=== PATIENT | male | born 1980 | race Caucasian/White ===

== ENCOUNTER 2016-05-07 15:42 | Outpatient (CLI) | payer OTHER ==
--- NOTE | 2016-05-08 10:28 | XRAY Report ---
THREE-VIEW CERVICAL SPINE: 05/07/2016 CLINICAL INDICATION: Neck pain. FINDINGS: AP, lateral, odontoid views of the cervical spine demonstrate mild degenerative disk disea se, with disk space narrowing at C3-4. There is no evidence of acute fracture or subluxation. The p revertebral soft tissues are unremarkable. IMPRESSION: MILD DEGENERATIVE DISK DISEASE. JOB #: [id number] EXT JOB #:[id number]
== END 2016-05-07 15:43 | disposition home or self-care (01) ==
LOC: DI.S 15:42
PROVIDERS: ATTEND Physician Assistant
DX: M50.31 Other cervical disc degeneration, high cervical region (principal)
CPT/HCPCS: 72040

== ENCOUNTER 2016-06-25 07:04 | Day surgery (SDC) | payer OTHER ==
[2016-06-25] MEDS ORDERED: ceFAZolin 2 GM/50 ML 50 ML IV ONE (07:05)
[2016-06-25] MEDS ORDERED: LACTATED RINGERS 1,000 ML IV ONE ×2 (07:49→10:40)
[2016-06-25] MEDS ORDERED: BUPIVACAINE 0.5% PF 30 ML VIAL INFIL ONE ×2 (08:56)
[2016-06-25] MEDS ORDERED: ONDANSETRON 4 MG/2 ML VIAL IVP ONE (09:00)
[2016-06-25] MEDS ORDERED: MIDAZOLAM 2 MG/2 ML VIAL IVP ONE (09:00)
[2016-06-25] MEDS ORDERED: ROCURONIUM 50 MG/5 ML VIAL IVP ONE (09:00)
[2016-06-25] MEDS ORDERED: NEOSTIGMINE 1 MG/1 ML 10 ML MDV IVP ONE (09:00)
[2016-06-25] MEDS ORDERED: SUCCINYLCHOLINE 200 MG/10 ML VIAL IVP ONE (09:00)
[2016-06-25] MEDS ORDERED: DEXAMETHASONE 4 MG/ML VIAL IVP ONE (09:00)
[2016-06-25] MEDS ORDERED: PROPOFOL 200 MG/20 ML VIAL IVP ONE (09:00)
[2016-06-25] MEDS ORDERED: GLYCOPYRROLATE 1 MG/5 ML VIAL IVP ONE (09:00)
[2016-06-25] MEDS ORDERED: LIDOCAINE-MPF 2% 5 ML VIAL IM ONE (09:00)
[2016-06-25] MEDS ORDERED: fentaNYL 100 MCG/2 ML VIAL IVP ONE (09:00)
[2016-06-25] MEDS ORDERED: oxyCOD/ACETAMIN 5 MG/325 MG TABLET PO ONE (10:24)
== END 2016-06-25 07:05 | disposition home or self-care (01) ==
PROC: 0YU54JZ Supplement Right Inguinal Region with Synthetic Substitute, Percutaneous Endoscopic Approach (ICD-10-PCS; principal; 2016-06-25 08:15)
DX: K40.90 Unilateral inguinal hernia, without obstruction or gangrene, not specified as recurrent (principal)
CPT/HCPCS: 49650; A9270; C1781; J0690; J7120

== ENCOUNTER 2018-03-09 19:25 | Emergency (ER) | payer OTHER ==
[2018-03-09] MEDS ORDERED: LIDOCAINE 1% 2 ML VIAL SUBQ ONE (20:01)
[2018-03-09] MEDS ORDERED: cefTRIAXone 1 GM VIAL IM STA (20:01)
--- NOTE | 2018-03-09 20:03 | ED Physician Documentation ---
PD HPI UPPER EXT INJURY - Stated complaint Stated Complaint: LR ARM RASH - Chief complaint Chief Complaint: Ext Problem - History obtained from History obtained from: Patient - History of Present Illness Location: Left (Last day or so he has had some pain of the left thumb. He has a remote history of surgery with pins there. Today he has had redness and pain tracking up the arm. No fevers or chills.) Review of Systems Constitutional: denies: Fever, Chills Cardiac: reports: Reviewed and negative Respiratory: reports: Reviewed and negative GI: denies: Abdominal Pain, Nausea, Vomiting PD PAST MEDICAL HISTORY - Past Medical History Past Medical History: No Respiratory: None Endocrine/Autoimmune: None GI: None : None HEENT: None Psych: None Musculoskeletal: None Derm: None - Past Surgical History Past Surgical History: Yes Ortho: Other - Present Medications Home Medications: Ambulatory Orders Medication Instructions Recorded Confirmed Cephalexin [Keflex] 500 mg PO Q6H #28 capsule 03/09/18 - Allergies Allergies/Adverse Reactions: Allergies Allergy/AdvReac Type Severity Reaction Status Date / Time No Known Drug Allergies Allergy Verified 03/09/18 19:34 - Social History Does the pt smoke?: No Smoking Status: Never smoker Does the pt drink ETOH?: No Does the pt have substance abuse?: No - Immunizations Immunizations are current?: Yes - POLST Patient has POLST: No PD ED PE NORMAL - Vitals Vital signs reviewed: Yes - General General: Alert and oriented X 3, No acute distress - Extremities Extremities: Other (There is mild tenderness of the distal left thumb but no paronychia or felon. He has good range of motion which is painless. He has a mild case of lymphangitis tracking up the forearm to the antecubital fossa. No track cardenas or other evidence of trauma except for a little scrape on the dorsal side of the second left finger of that does not appear infected.) - Neuro Neuro: Alert and oriented X 3, Normal speech Results - Vitals Vitals: Vital Signs - 24 hr 03/09/18 19:30 Temperature 36.8 C Heart Rate 65 Respiratory 19 Rate Blood Pressure 127/79 O2 Saturation 97 Oxygen O2 Source Room air PD MEDICAL DECISION MAKING - ED course ED course: This is a 37-year-old gentleman who is not in extremis who presents with mild case of lymphangitis that appears to be from a mild infection of the left thumb and nothing to drain at this juncture. He is administered Rocephin IM here. Departure - Departure Disposition: 01 Home, Self Care Clinical Impression: Lymphangitis Condition: Good Record reviewed to determine appropriate education?: Yes Instructions: ED Lymphangitis Prescriptions: Cephalexin [Keflex] 500 mg PO Q6H #28 capsule Comments: Return immediately if he started to feel generally ill i.e. fevers or chills or diffuse body aches. Also return if pain becomes intolerable or severe or if not improving in 24-48 hours.
[2018-03-09 20:26] VITALS: BP 126/59
== END 2018-03-09 20:50 | disposition home or self-care (01) ==
LOC: ED 19:25
DX: L03.124 Acute lymphangitis of left upper limb (principal)
CPT/HCPCS: 96372; 99283

== ENCOUNTER 2018-12-24 18:30 | Outpatient (CLI) | payer OTHER ==
[2018-12-24 21:13] LABS: BASOPHILS % (AUTO) 0.7 %; EOSINOPHILS # (AUTO) 0.3 10^3/uL (0.0-0.7); EOSINOPHILS % (AUTO) 5.1 %; HGB - HEMOGLOBIN 14.2 g/dL (14.0-18.0); LYMPHOCYTES # (AUTO) 1.7 10^3/uL (1.5-3.5); LYMPHOCYTES % (AUTO) 29.8 %; MEAN CORPUSCULAR HEMOGLOBIN 31.3 pg (27.0-31.0); MEAN CORPUSCULAR HGB CONC 34.7 g/dL (32.0-36.0); MEAN CORPUSCULAR VOLUME 90.3 fL (80.0-94.0); MEAN PLATELET VOLUME 9.4 fL (7.4-11.4); MONOCYTES # (AUTO) 0.5 10^3/uL (0.0-1.0); MONOCYTES % (AUTO) 9.6 %; NEUTROPHILS # (AUTO) 3.1 10^3/uL (1.5-6.6); NEUTROPHILS % (AUTO) 54.6 %; PLT - PLATELET COUNT 217 10^3/uL (130-450); RED BLOOD COUNT 4.53 10^6/uL (4.70-6.10); RED CELL DISTRIBUTION WIDTH 11.9 % (12.0-15.0); WHITE BLOOD COUNT 5.6 x10^3/uL (4.8-10.8)
[2018-12-24 21:23] LABS: BUN - BLOOD UREA NITROGEN 23 mg/dL (6-20); CALCIUM 9.6 mg/dL (8.5-10.3); CARBON DIOXIDE - CO2 30 mmol/L (21-32); CHLORIDE 101 mmol/L (101-111); CREATININE 0.9 mg/dL (0.6-1.2); GFR - MDRD 95 (>89); GLUCOSE 97 mg/dL (70-100); SODIUM 139 mmol/L (135-145)
[2018-12-24 21:34] LABS: CRP - C-REACTIVE PROTEIN < 1.0 mg/dL (0-1.0)
== END 2018-12-24 23:59 | disposition home or self-care (01) ==
LOC: LAB.R 18:30
PROVIDERS: ATTEND Internal Medicine
DX: M86.642 Other chronic osteomyelitis, left hand (principal)
CPT/HCPCS: 80048; 85025; 85651; 86140

== ENCOUNTER 2018-12-31 19:00 | Outpatient (CLI) | payer OTHER ==
[2018-12-31 21:25] LABS: BASOPHILS % (AUTO) 0.5 %; EOSINOPHILS # (AUTO) 0.2 10^3/uL (0.0-0.7); EOSINOPHILS % (AUTO) 3.8 %; HGB - HEMOGLOBIN 14.3 g/dL (14.0-18.0); LYMPHOCYTES # (AUTO) 1.8 10^3/uL (1.5-3.5); LYMPHOCYTES % (AUTO) 31.7 %; MEAN CORPUSCULAR HEMOGLOBIN 31.4 pg (27.0-31.0); MEAN CORPUSCULAR HGB CONC 34.7 g/dL (32.0-36.0); MEAN CORPUSCULAR VOLUME 90.5 fL (80.0-94.0); MEAN PLATELET VOLUME 9.6 fL (7.4-11.4); MONOCYTES # (AUTO) 0.6 10^3/uL (0.0-1.0); MONOCYTES % (AUTO) 10.5 %; NEUTROPHILS # (AUTO) 2.9 10^3/uL (1.5-6.6); NEUTROPHILS % (AUTO) 53.3 %; PLT - PLATELET COUNT 210 10^3/uL (130-450); RED BLOOD COUNT 4.55 10^6/uL (4.70-6.10); RED CELL DISTRIBUTION WIDTH 12.2 % (12.0-15.0); WHITE BLOOD COUNT 5.5 x10^3/uL (4.8-10.8)
[2018-12-31 21:51] LABS: BUN - BLOOD UREA NITROGEN 25 mg/dL (6-20); CALCIUM 9.6 mg/dL (8.5-10.3); CARBON DIOXIDE - CO2 29 mmol/L (21-32); CHLORIDE 102 mmol/L (101-111); CREATININE 0.9 mg/dL (0.6-1.2); GFR - MDRD 95 (>89); GLUCOSE 66 mg/dL (70-100); SODIUM 139 mmol/L (135-145)
[2018-12-31 21:54] LABS: CRP - C-REACTIVE PROTEIN < 1.0 mg/dL (0-1.0)
== END 2018-12-31 23:59 | disposition home or self-care (01) ==
LOC: LAB.R 19:00
PROVIDERS: ATTEND Internal Medicine
DX: M86.642 Other chronic osteomyelitis, left hand (principal); L03.012 Cellulitis of left finger; S60.352A Superficial foreign body of left thumb, initial encounter; B95.61 Methicillin susceptible Staphylococcus aureus infection as the cause of diseases classified elsewhere
CPT/HCPCS: 80048; 85025; 85651; 86140

== ENCOUNTER 2019-01-07 19:15 | Outpatient (CLI) | payer OTHER ==
[2019-01-07 22:36] LABS: BASOPHILS % (AUTO) 0.6 %; EOSINOPHILS # (AUTO) 0.2 10^3/uL (0.0-0.7); EOSINOPHILS % (AUTO) 3.7 %; HGB - HEMOGLOBIN 13.9 g/dL (14.0-18.0); LYMPHOCYTES # (AUTO) 1.6 10^3/uL (1.5-3.5); LYMPHOCYTES % (AUTO) 30.3 %; MEAN CORPUSCULAR HEMOGLOBIN 31.2 pg (27.0-31.0); MEAN CORPUSCULAR HGB CONC 34.5 g/dL (32.0-36.0); MEAN CORPUSCULAR VOLUME 90.6 fL (80.0-94.0); MEAN PLATELET VOLUME 9.9 fL (7.4-11.4); MONOCYTES # (AUTO) 0.5 10^3/uL (0.0-1.0); NEUTROPHILS # (AUTO) 2.9 10^3/uL (1.5-6.6); NEUTROPHILS % (AUTO) 55.2 %; PLT - PLATELET COUNT 201 10^3/uL (130-450); RED BLOOD COUNT 4.45 10^6/uL (4.70-6.10); RED CELL DISTRIBUTION WIDTH 12.1 % (12.0-15.0); WHITE BLOOD COUNT 5.2 x10^3/uL (4.8-10.8)
[2019-01-07 23:05] LABS: BUN - BLOOD UREA NITROGEN 23 mg/dL (6-20); CALCIUM 9.5 mg/dL (8.5-10.3); CARBON DIOXIDE - CO2 29 mmol/L (21-32); CHLORIDE 102 mmol/L (101-111); CREATININE 0.9 mg/dL (0.6-1.2); GFR - MDRD 95 (>89); GLUCOSE 87 mg/dL (70-100); SODIUM 142 mmol/L (135-145)
[2019-01-07 23:41] LABS: CRP - C-REACTIVE PROTEIN < 1.0 mg/dL (0-1.0)
== END 2019-01-07 23:59 | disposition home or self-care (01) ==
LOC: LAB.R 19:15
PROVIDERS: ATTEND Internal Medicine
DX: M86.642 Other chronic osteomyelitis, left hand (principal)
CPT/HCPCS: 80048; 85025; 85610; 85651; 86140

== ENCOUNTER 2019-01-14 19:30 | Outpatient (CLI) | payer OTHER ==
[2019-01-14 22:52] LABS: BASOPHILS % (AUTO) 0.3 %; EOSINOPHILS # (AUTO) 0.2 10^3/uL (0.0-0.7); EOSINOPHILS % (AUTO) 4.9 %; HGB - HEMOGLOBIN 13.7 g/dL (14.0-18.0); LYMPHOCYTES # (AUTO) 1.2 10^3/uL (1.5-3.5); LYMPHOCYTES % (AUTO) 35.5 %; MEAN CORPUSCULAR HGB CONC 34.9 g/dL (32.0-36.0); MEAN CORPUSCULAR VOLUME 88.9 fL (80.0-94.0); MEAN PLATELET VOLUME 9.5 fL (7.4-11.4); MONOCYTES # (AUTO) 0.3 10^3/uL (0.0-1.0); MONOCYTES % (AUTO) 10.2 %; NEUTROPHILS # (AUTO) 1.6 10^3/uL (1.5-6.6); NEUTROPHILS % (AUTO) 48.8 %; PLT - PLATELET COUNT 154 10^3/uL (130-450); RED BLOOD COUNT 4.42 10^6/uL (4.70-6.10); RED CELL DISTRIBUTION WIDTH 11.7 % (12.0-15.0); WHITE BLOOD COUNT 3.2 x10^3/uL (4.8-10.8)
[2019-01-14 23:02] LABS: BUN - BLOOD UREA NITROGEN 24 mg/dL (6-20); CALCIUM 9.4 mg/dL (8.5-10.3); CARBON DIOXIDE - CO2 29 mmol/L (21-32); CHLORIDE 100 mmol/L (101-111); CREATININE 0.9 mg/dL (0.6-1.2); GFR - MDRD 95 (>89); GLUCOSE 84 mg/dL (70-100); SODIUM 135 mmol/L (135-145)
[2019-01-14 23:03] LABS: CRP - C-REACTIVE PROTEIN < 1.0 mg/dL (0-1.0)
== END 2019-01-14 23:59 | disposition home or self-care (01) ==
LOC: LAB.R 19:30
PROVIDERS: ATTEND Internal Medicine
DX: M86.642 Other chronic osteomyelitis, left hand (principal)
CPT/HCPCS: 80048; 85025; 85651; 86140

== ENCOUNTER 2019-01-21 19:50 | Outpatient (CLI) | payer OTHER ==
[2019-01-21 21:22] LABS: EOSINOPHILS % (AUTO) 9.2 %; HGB - HEMOGLOBIN 12.4 g/dL (14.0-18.0); LYMPHOCYTES % (AUTO) 29.4 %; MEAN CORPUSCULAR HEMOGLOBIN 30.3 pg (27.0-31.0); MEAN CORPUSCULAR HGB CONC 34.8 g/dL (32.0-36.0); MEAN PLATELET VOLUME 9.3 fL (7.4-11.4); MONOCYTES % (AUTO) 18.4 %; NEUTROPHILS % (AUTO) 42.6 %; PLT - PLATELET COUNT 172 10^3/uL (130-450); RED BLOOD COUNT 4.09 10^6/uL (4.70-6.10); RED CELL DISTRIBUTION WIDTH 11.6 % (12.0-15.0); WHITE BLOOD COUNT 2.8 x10^3/uL (4.8-10.8)
[2019-01-21 21:40] LABS: CALCIUM 9.2 mg/dL (8.5-10.3); CRP - C-REACTIVE PROTEIN 1.4 mg/dL (0-1.0)
[2019-01-21 21:59] LABS: ABNORMAL LYMPHS % (MANUAL) 0 %
[2019-01-21 22:06] LABS: BAND NEUTROPHILS % (MANUAL) 5 %; EOSINOPHILS # (MANUAL) 0.2 10^3/uL (0-0.7); LYMPHOCYTES # (MANUAL) 0.8 10^3/uL (1.5-3.5); LYMPHOCYTES % (MANUAL) 24 %; MONOCYTES # (MANUAL) 0.4 10^3/uL (0.0-1.0)
[2019-01-21 22:07] LABS: DIFFERENTIAL COMMENT MANUAL DIFFERENTIAL; PLATELET ESTIMATE, MANUAL NORMAL (130-450,000) (NORMAL); PLATELET MORPHOLOGY NORMAL APPEARANCE (NORMAL); RBC MORPHOLOGY (MULTIPLE) NORMAL APPEARANCE (NORMAL)
== END 2019-01-21 23:59 | disposition home or self-care (01) ==
LOC: LAB.R 19:50
PROVIDERS: ATTEND Internal Medicine
DX: M86.642 Other chronic osteomyelitis, left hand (principal)
CPT/HCPCS: 80048; 85025; 85651; 86140

== ENCOUNTER 2019-01-28 19:45 | Outpatient (CLI) | payer OTHER ==
[2019-01-28 21:49] LABS: EOSINOPHILS # (AUTO) 0.3 10^3/uL (0.0-0.7); EOSINOPHILS % (AUTO) 7.4 %; HGB - HEMOGLOBIN 11.4 g/dL (14.0-18.0); LYMPHOCYTES # (AUTO) 1.3 10^3/uL (1.5-3.5); LYMPHOCYTES % (AUTO) 38.6 %; MEAN CORPUSCULAR HEMOGLOBIN 29.5 pg (27.0-31.0); MEAN CORPUSCULAR HGB CONC 34.3 g/dL (32.0-36.0); MEAN PLATELET VOLUME 9.2 fL (7.4-11.4); MONOCYTES # (AUTO) 0.2 10^3/uL (0.0-1.0); NEUTROPHILS # (AUTO) 1.6 10^3/uL (1.5-6.6); NEUTROPHILS % (AUTO) 48.7 %; PLT - PLATELET COUNT 216 10^3/uL (130-450); RED BLOOD COUNT 3.86 10^6/uL (4.70-6.10); RED CELL DISTRIBUTION WIDTH 11.6 % (12.0-15.0); WHITE BLOOD COUNT 3.4 x10^3/uL (4.8-10.8)
[2019-01-28 22:05] LABS: BUN - BLOOD UREA NITROGEN 23 mg/dL (6-20); CALCIUM 9.1 mg/dL (8.5-10.3); CARBON DIOXIDE - CO2 28 mmol/L (21-32); CHLORIDE 103 mmol/L (101-111); GFR - MDRD 84 (>89); GLUCOSE 74 mg/dL (70-100); SODIUM 137 mmol/L (135-145)
[2019-01-28 22:06] LABS: CRP - C-REACTIVE PROTEIN < 1.0 mg/dL (0-1.0)
== END 2019-01-28 23:59 | disposition home or self-care (01) ==
LOC: LAB.R 19:45
PROVIDERS: ATTEND Internal Medicine
DX: M86.642 Other chronic osteomyelitis, left hand (principal)
CPT/HCPCS: 80048; 85025; 85651; 86140

== ENCOUNTER 2021-01-19 19:50 | Outpatient (CLI) | payer OTHER | END 2021-01-19 23:59 | disposition EMS.NT | LOC: EMS 19:50 | DX: S43.005A Unspecified dislocation of left shoulder joint, initial encounter (principal); W01.0XXA Fall on same level from slipping, tripping and stumbling without subsequent striking against object, initial encounter; Y93.01 Activity, walking, marching and hiking; Y92.007 Garden or yard of unspecified non-institutional (private) residence as the place of occurrence of the external cause ==

== ENCOUNTER 2021-01-19 20:37 | Emergency (ER) | payer OTHER ==
--- NOTE | 2021-01-19 20:44 | ED Physician Documentation ---
PD HPI UPPER EXT INJURY - Stated complaint Stated Complaint: LEFT SHOULDER INJURY - History obtained from History obtained from: Patient - History of Present Illness Location: Left, Shoulder Type of injury: Fall Where injury occurred: Home Timing - onset: How many hours ago (1) Pain level now: 8 Improved by: Rest Worsened by: Moving, Palpating Associated symptoms: No: Weakness, Numbness Contributing factors: No: Anticoagulated, Prior ortho surgery, Work related Recently seen: Not recently seen - Additonal information Additional information: approximately 1 hour [employer], patient was walking outside his house when he slipped and fell onto his left side, c/o sudden onset left shoulder pain. He is right hand dominant. Pain is worse with any movement of left shoulder. Denies any other injury; denies head injury, denies LOC Review of Systems Skin: reports: Reviewed and negative Musculoskeletal: reports: Joint pain. denies: Neck pain, Back pain, Extremity pain, Extremity swelling, Joint swelling Neurologic: denies: Focal weakness, Numbness, Headache, Head injury PD PAST MEDICAL HISTORY - Past Medical History Respiratory: None Endocrine/Autoimmune: None GI: None : None HEENT: None Psych: None Musculoskeletal: None Derm: None - Past Surgical History Past Surgical History: Yes Ortho: Other - Present Medications Home Medications: Ambulatory Orders Medication Instructions Recorded Confirmed cephALEXin [Keflex] 500 mg PO Q6H #28 capsule 03/09/18 - Allergies Allergies/Adverse Reactions: Allergies Allergy/AdvReac Type Severity Reaction Status Date / Time No Known Drug Allergies Allergy Verified 03/09/18 19:34 - Social History Does the pt smoke?: No Smoking Status: Never smoker Does the pt drink ETOH?: No Does the pt have substance abuse?: No - Immunizations Immunizations are current?: Yes - POLST Patient has POLST: No PD ED PE NORMAL - Vitals Vital signs reviewed: Yes - General General: Alert and oriented X 3, Well developed/nourished, Other (appears to be in mild painful discomfort at rest) - HEENT HEENT: Atraumatic - Neck Neck: No bony TTP - Derm Derm: Normal color, Warm and dry - Neuro Neuro: No motor deficit, No sensory deficit (LTS intact LUE) PD ED PE EXPANDED - Extremities Extremities: Deformity (prominent acromion at left shoulder), Limited ROM (unable to achieve any ROM at left shoulder due to pain with any such attempts), Motor intact, Sensory intact (LTS intact LUE including hand, forearm, lateral aspect of upper arm (over deltoid)), Vascular intact (strong left radial pulse). No: Bruising Results - Vitals Vitals: Vital Signs - 24 hr 01/19/21 01/19/21 01/19/21 20:42 21:21 21:33 Temperature 36 C L Heart Rate 64 69 66 Respiratory 16 25 H Rate Blood Pressure 126/80 138/82 H O2 Saturation 100 100 100 01/19/21 01/19/21 01/19/21 21:35 21:45 21:47 Temperature Heart Rate 67 71 63 Respiratory 14 8 L Rate Blood Pressure 149/96 H O2 Saturation 100 100 01/19/21 01/19/21 22:00 22:50 Temperature Heart Rate 67 66 Respiratory 14 Rate Blood Pressure 143/87 H O2 Saturation 100 16 L Oxygen O2 Source Room air - Rads (name of study) left shoulder xrays Radiology: Prelim report reviewed, See rad report post-reduction xrays left shoulder Radiology: Prelim report reviewed, See rad report Procedures - Reduction Body part reduced: Left, Shoulder Fracture or dislocation: Dislocation Anesthesia: Dilaudid, Other (propofol) Shoulder reduction technique: [place] / ext rotation Reduction aftercare: NV intact, Xray confirms reduction, Alignment improved, Sling, Patient tolerated well - Procedural sedation Sedation prep: Informed consent, Time out completed, PE performed, ASA 1 - healt hy, IV O2 monitor, ET CO2 monitor, RT present Sedation Medications: propofol Mallampati classification: I Patient status during sedation: Responds to verbal, Vitals remained stable, Maintained airway, Recovered uneventfully Sedation recovery: Recovered uneventfully, Back to baseline Time in sedation (Minutes): 15 (propofol was given in 10-20mg aliquots by me; after total of 110mg, he remained awake and alert, with mild drowsiness only. at that point I attempted reduction and this was quickly achieved on first attempt) PD MEDICAL DECISION MAKING - ED course Complexity details: reviewed results, re-evaluated patient, considered differential, d/w patient ED course: left glenohumeral dislocation after fall outside of his home. Reduction achieved as noted above. Post-reduction xrays demonstrate reduction but also fracture through anterior-inferior rim of osseous glenoid. I discussed the case with Dr. Walker (development professional orthopedic surgery for [facility]), patient can be reevaluated in outpatient setting with orthopedic surgery, to be kept in sling until follow-up. I discussed this with the patient and he will pursue outpatient follow up as advised. He is in NAD at the time of discharge Departure - Departure Disposition: 01 Home, Self Care Clinical Impression: Closed traumatic dislocation of left glenohumeral joint Condition: Good Instructions: ED Sedation Procedural Discon, ED Dislocation Shoulder Redu Follow-Up: Bar Walker MD [Provider Admit Priv/Credential] - Within 1 week Discharge Date/Time: 01/19/21 22:54
[2021-01-19] MEDS: HYDROmorphone 0.5 MG/0.5 ML SYRINGE IVP STA (21:17)
[2021-01-19] MEDS: HYDROmorphone 1 MG/ML CARPUJECT IVP STA (21:30)
[2021-01-19] MEDS: PROPOFOL 200 MG/20 ML VIAL IVP STA (21:33)
--- NOTE | 2021-01-19 21:47 | XRAY Report ---
PROCEDURE: Shoulder 3 View LT INDICATIONS: left shoulder injury TECHNIQUE: Views of the left shoulderwere acquired. COMPARISON: None. FINDINGS: Bones: Anterior shoulder dislocation. No fracture identified. Left knee joint has degenerative fang es. Soft tissues: No suspicious soft tissue calcifications. IMPRESSION: Left anterior shoulder dislocation. Reviewed by: Beck Banuelos on 01/19/2021 9:46 PM [facility] Approved by: Beck Banuelos on 01/19/2021 9:46 PM [facility] Station ID: [id number]
--- NOTE | 2021-01-19 22:35 | XRAY Report ---
PROCEDURE: Shoulder 3 View LT INDICATIONS: post-reduction left shoulder TECHNIQUE: 3 views of the shoulder were acquired. COMPARISON: 01/19/2021 FINDINGS: Humeral head is now well positioned in the glenoid fossa. Minimally displaced fracture through the i nferior rim of the osseous glenoid is noted. Normal bone mineralization present. Soft tissues: No suspicious soft tissue calcifications. IMPRESSION: Reduced left shoulder. Fracture through the anterior-inferior rim of the osseous glenoid Reviewed by: Alec Sandy MD on 01/19/2021 10:34 PM PST Approved by: Alec Sandy MD on 01/19/2021 10:34 PM PST Station ID: [id number]
[2021-01-19 22:51] VITALS: BP 143/87
== END 2021-01-19 22:54 | disposition home or self-care (01) ==
LOC: ED 20:37
DX: S43.005A Unspecified dislocation of left shoulder joint, initial encounter (principal); W01.0XXA Fall on same level from slipping, tripping and stumbling without subsequent striking against object, initial encounter; Y93.01 Activity, walking, marching and hiking; Y92.009 Unspecified place in unspecified non-institutional (private) residence as the place of occurrence of the external cause
CPT/HCPCS: 23650; 73030; 96374; 99152; 99284; 99285; J1170; 94770

== ENCOUNTER 2022-08-09 07:00 | Outpatient (CLI) | payer SELFPAY ==
--- NOTE | 2022-08-09 14:54 | XRAY Report ---
PROCEDURE: Ankle 3 View RT INDICATIONS: RIGHT ANKLE PAIN TECHNIQUE: 3 views of the ankle were acquired. COMPARISON: None. FINDINGS: Bones: No fractures or dislocations. Ankle mortise is normally aligned. No suspicious bony lesions . Soft tissues: Small tibiotalar joint effusion. Achilles tendon appears normal. Soft tissue swellin g about the ankle. IMPRESSION: Small tibial talar joint effusion, and generalized edema about the ankle. No acute bony abnormality. If there remains a high clinical concern for fracture, including inability to bear weight, consider c ross-sectional imaging to exclude an occult fracture. Reviewed by: Javi Gallagher on 08/09/2022 2:53 PM PDT Approved by: Javi Gallagher on 08/09/2022 2:53 PM PDT Station ID: [id number]
== END 2022-08-09 23:59 | disposition home or self-care (01) ==
LOC: DI.S 07:00
PROVIDERS: ATTEND Physician Assistant
DX: M25.571 Pain in right ankle and joints of right foot (principal); M25.471 Effusion, right ankle; R60.0 Localized edema

== ENCOUNTER 2022-08-23 08:00 | Outpatient (CLI) | payer SELFPAY ==
--- NOTE | 2022-08-23 19:01 | XRAY Report ---
PROCEDURE: Ankle 3 View RT INDICATIONS: RIGHT ANKLE PAIN TECHNIQUE: 3 views of the ankle were acquired. COMPARISON: None. FINDINGS: Bones: No fractures or dislocations. Ankle mortise is normally aligned. No suspicious bony lesions . Soft tissues: No tibiotalar joint effusion. Achilles tendon appears normal. Moderate lateral malle olus soft tissue edema. IMPRESSION: Lateral malleolus soft tissue swelling without underlying fracture or dislocation. If there is persistent clinical concern for a radiographically occult fracture, recommend immobilizat ion and repeat imaging in 10 to 14 days. Reviewed by: Amrik Fortune MD on 08/23/2022 7:00 PM PDT Approved by: Amrik Fortune MD on 08/23/2022 7:00 PM PDT Station ID: [id number]
== END 2022-08-23 23:59 | disposition home or self-care (01) ==
LOC: DI.WOS 08:00
PROVIDERS: ATTEND Physician Assistant Surgical
DX: S93.431A Sprain of tibiofibular ligament of right ankle, initial encounter (principal)

== ENCOUNTER 2023-05-07 13:39 | Outpatient (CLI) | payer SELFPAY ==
[2023-05-07 20:15] LABS: BASOPHILS % (AUTO) 0.8 %; EOSINOPHILS # (AUTO) 0.2 10^3/uL (0.0-0.7); EOSINOPHILS % (AUTO) 3.7 %; HCT - HEMATOCRIT 42.2 % (42.0-52.0); HGB - HEMOGLOBIN 14.3 g/dL (14.0-18.0); LYMPHOCYTES # (AUTO) 1.6 10^3/uL (1.5-3.5); LYMPHOCYTES % (AUTO) 30.1 %; MEAN CORPUSCULAR HEMOGLOBIN 31.2 pg (27.0-31.0); MEAN CORPUSCULAR HGB CONC 33.9 g/dL (32.0-36.0); MEAN CORPUSCULAR VOLUME 92.1 fL (80.0-94.0); MEAN PLATELET VOLUME 9.2 fL (7.4-11.4); MONOCYTES # (AUTO) 0.6 10^3/uL (0.0-1.0); MONOCYTES % (AUTO) 10.8 %; NEUTROPHILS # (AUTO) 2.8 10^3/uL (1.5-6.6); NEUTROPHILS % (AUTO) 54.4 %; PLT - PLATELET COUNT 287 10^3/uL (130-450); RED BLOOD COUNT 4.58 10^6/uL (4.70-6.10); WHITE BLOOD COUNT 5.2 x10^3/uL (4.8-10.8)
[2023-05-07 20:27] LABS: ALBUMIN 4.3 g/dL (3.2-5.5); ALBUMIN/GLOBULIN RATIO 1.6 (1.0-2.2); BILIRUBIN,TOTAL 1.1 mg/dL (0.2-1.0); CALCIUM 9.8 mg/dL (8.5-10.3); CREATININE 1.4 mg/dL (0.6-1.3)
[2023-05-07 21:08] LABS: THYROID STIMULATING HORMONE 3.05 uIU/mL (0.34-5.60)
== END 2023-05-07 13:40 | disposition home or self-care (01) ==
LOC: LAB.S 13:39
PROVIDERS: ATTEND Physician Assistant Medical
DX: I10 Essential (primary) hypertension (principal); Z13.29 Encounter for screening for other suspected endocrine disorder
CPT/HCPCS: 36415; 80053; 84443; 85025

== ENCOUNTER 2023-05-10 15:20 | Outpatient (CLI) | payer OTHER ==
--- NOTE | 2023-05-11 08:42 | CT Report ---
PROCEDURE: Abdomen/Pelvis WO INDICATIONS: ABN KIDNEY FUNCTION, HYPERTENSION, FLANK PAIN TECHNIQUE: A CT scan of the abdomen and pelvis was performed without the use of intravenous contrast. Images we re recorded and evaluated at appropriate window settings. Reformats: coronal and sagittal. For radiat ion dose reduction, the following was used: automated exposure control, adjustment of mA and/or kV ac cording to patient size. COMPARISON: None. FINDINGS: Image quality: Diagnostic. Lower chest: Unremarkable. Liver: No contour-deforming mass. Gallbladder and biliary tree: No radiopaque stones or wall thickening. No biliary dilation. Spleen: No splenomegaly. Pancreas: No pancreatic ductal dilation. Adrenals: No adrenal nodule. Kidneys and ureters: No hydronephrosis. No renal cystic lesion which requires follow up. No solid mas s. Stomach, bowel and peritoneum: No bowel distension. No pathologic free fluid. Moderately large fecal load. Lymph nodes: No central or retroperitoneal adenopathy. Vessels: No infrarenal aortic aneurysm. PELVIS Reproductive organs: Unremarkable. Bladder: No wall thickness, accounting for underdistention. Pelvic lymph nodes: No pelvic adenopathy by size criteria. Bones: No aggressive osseous abnormality. Other: No significant ventral or inguinal hernia. IMPRESSION: 1. No acute abdominal process. 2. Moderately large fecal load. Reviewed by: Zurdo Myers MD on 05/11/2023 8:40 AM PDT Approved by: Zurdo Myers MD on 05/11/2023 8:40 AM PDT Station ID: [id number]
== END 2023-05-10 15:21 | disposition home or self-care (01) ==
LOC: DI 15:20
PROVIDERS: ATTEND Physician Assistant Medical
DX: R94.4 Abnormal results of kidney function studies (principal); I10 Essential (primary) hypertension; R10.9 Unspecified abdominal pain

== ENCOUNTER 2023-08-05 10:23 | Outpatient (CLI) | payer OTHER ==
[2023-08-05 14:42] LABS: BASOPHILS % (AUTO) 0.9 %; EOSINOPHILS # (AUTO) 0.2 10^3/uL (0.0-0.7); EOSINOPHILS % (AUTO) 5.3 %; HGB - HEMOGLOBIN 13.9 g/dL (14.0-18.0); LYMPHOCYTES # (AUTO) 1.6 10^3/uL (1.5-3.5); LYMPHOCYTES % (AUTO) 35.4 %; MEAN CORPUSCULAR HEMOGLOBIN 30.1 pg (27.0-31.0); MEAN CORPUSCULAR HGB CONC 33.1 g/dL (32.0-36.0); MEAN CORPUSCULAR VOLUME 90.9 fL (80.0-94.0); MEAN PLATELET VOLUME 9.7 fL (7.4-11.4); MONOCYTES # (AUTO) 0.5 10^3/uL (0.0-1.0); NEUTROPHILS # (AUTO) 2.1 10^3/uL (1.5-6.6); NEUTROPHILS % (AUTO) 47.2 %; PLT - PLATELET COUNT 211 10^3/uL (130-450); RED BLOOD COUNT 4.62 10^6/uL (4.70-6.10); RED CELL DISTRIBUTION WIDTH 12.4 % (12.0-15.0); WHITE BLOOD COUNT 4.4 x10^3/uL (4.8-10.8)
[2023-08-05 15:02] LABS: CALCIUM 9.9 mg/dL (8.5-10.3); CREATININE 1.1 mg/dL (0.6-1.3); PHOSPHORUS 3.3 mg/dL (2.5-5.0); POTASSIUM 4.1 mmol/L (3.5-4.5)
[2023-08-05 15:05] LABS: THYROID STIMULATING HORMONE 2.2 uIU/mL (0.34-5.60)
[2023-08-05 20:34] LABS: ESTIMATED AVERAGE GLUCOSE 105 mg/dL (70-100); HEMOGLOBIN A1c% 5.3 % (4.27-6.07)
== END 2023-08-05 10:24 | disposition home or self-care (01) ==
LOC: LAB.S 10:23
PROVIDERS: ATTEND Nurse Practitioner Acute Care
DX: I10 Essential (primary) hypertension (principal); E88.89 Other specified metabolic disorders; R94.4 Abnormal results of kidney function studies; Z13.228 Encounter for screening for other metabolic disorders; Z13.29 Encounter for screening for other suspected endocrine disorder
CPT/HCPCS: 36415; 80048; 83036; 84100; 84443; 85025